=== PATIENT | female | born 1960 | race Caucasian/White ===

== ENCOUNTER 2017-10-21 08:40 | Outpatient (CLI) | payer OTHER ==
--- NOTE | 2017-10-21 14:32 | MRI ---
MRI PELVIS WITH AND WITHOUT IV CONTRAST: INDICATIONS: Followup abnormal findings in the bladder. COMPARISON: Prior MRIs pelvis dated 08/13/2016, 06/27/2015, and 03/07/2015. FINDINGS: The slight asymmetric wall thickening involving the anterior bladder does not appear appreciably whyte ged. No definite intraluminal mass is grossly evident on the partially distended bladder. No free f luid is identified. No lymphadenopathy is noted. The small, T2 hyperintense, mildly enhancing lesio n within the posterior right sacrum, on image 22 of series 11, is stable, likely reflecting a small, benign, atypical hemangioma. No additional suspicious bone marrow signal abnormality is evident. Th e visualized aspects of the uterus, rectum, and perirectal soft tissues are within normal limits. Tr david physiologic fluid is seen within the pelvis. IMPRESSION: 1. Stable MRI examination of the pelvis with stable, mild, asymmetric thickening involving the anter ior superior aspect of the bladder. Again, findings may reflect sequela of a chronic inflammatory pr ocess, such as chronic cystitis. 2. Stable, small, atypical hemangioma within the right aspect of the sacrum. POS: [facility]
[2017-10-21] MEDS ORDERED: Gadobenate Dimeglumine 529 MG/1 ML (20ML VIAL) ONE (15:19)
== END 2017-10-21 08:41 | disposition home or self-care (01) ==
LOC: MRI 08:40
PROVIDERS: ATTEND Urology
DX: R93.49 Abnormal radiologic findings on diagnostic imaging of other urinary organs (principal); D18.09 Hemangioma of other sites
CPT/HCPCS: 72197; A9579

== ENCOUNTER 2019-03-26 11:58 | Outpatient (CLI) | payer OTHER ==
--- NOTE | 2019-03-26 12:26 | MMO ---
Bilateral MAMMO Bilat Screen [facility]. CLINICAL HISTORY: Patient is 59 years old and is seen for screening. The patient has no family history of breast cancer. The patient has no personal history of cancer. VIEWS: The views performed were: bilateral craniocaudal with tomosynthesis and bilateral mediolateral oblique with tomosynthesis. FILMS COMPARED: The present examination has been compared to prior imaging studies performed at [facility] on 09/24/2011, 10/13/2013, 03/30/2015 and 03/28/2017. MAMMOGRAM FINDINGS: The breasts are heterogeneously dense, which could obscure a lesion on mammography. There are no suspicious masses, suspicious calcifications, or new areas of architectural distortion. IMPRESSION: THERE IS NO MAMMOGRAPHIC EVIDENCE OF MALIGNANCY. A ROUTINE FOLLOW-UP MAMMOGRAM IN 1 YEAR IS RECOMMENDED. THE RESULTS OF THIS EXAM WERE SENT TO THE PATIENT. ACR BI-RADS Category 1 - Negative MAMMOGRAPHY NOTE: 1. A negative mammogram report should not delay a biopsy if a dominant of clinically suspicious mass is present. 2. Approximately 10% to 15% of breast cancers are not detected by mammography. 3. Adenosis and dense breasts may obscure an underlying neoplasm. Reported by: VANESSA NERI MD Electonically Signed: [id number]
== END 2019-03-26 11:59 | disposition home or self-care (01) ==
LOC: BICMAMMO 11:58
PROVIDERS: ATTEND Internal Medicine
DX: Z12.31 Encounter for screening mammogram for malignant neoplasm of breast (principal)
CPT/HCPCS: 77063; 77067

== ENCOUNTER 2020-08-18 08:42 | Outpatient (CLI) | payer OTHER ==
--- NOTE | 2020-08-18 09:19 | MMO ---
Bilateral MAMMO Bilat Screen [facility]. CLINICAL HISTORY: Patient is 60 years old and is seen for screening. The patient has no family history of breast cancer. The patient has no personal history of cancer. VIEWS: The views performed were: bilateral craniocaudal with tomosynthesis and bilateral mediolateral oblique with tomosynthesis. FILMS COMPARED: The present examination has been compared to prior imaging studies performed at [facility] on 10/13/2013, 03/30/2015, 03/28/2017 and 03/26/2019. This study has been interpreted with the assistance of computer-aided detection. MAMMOGRAM FINDINGS: The breasts are heterogeneously dense, which could obscure a lesion on mammography. There are no suspicious masses, suspicious calcifications, or new areas of architectural distortion. IMPRESSION: THERE IS NO MAMMOGRAPHIC EVIDENCE OF MALIGNANCY. A ROUTINE FOLLOW-UP MAMMOGRAM IN 1 YEAR IS RECOMMENDED. THE RESULTS OF THIS EXAM WERE SENT TO THE PATIENT. ACR BI-RADS Category 1 - Negative MAMMOGRAPHY NOTE: 1. A negative mammogram report should not delay a biopsy if a dominant of clinically suspicious mass is present. 2. Approximately 10% to 15% of breast cancers are not detected by mammography. 3. Adenosis and dense breasts may obscure an underlying neoplasm. Reported by: LEILA OH MD Electonically Signed: [id number]
--- NOTE | 2020-08-18 09:42 | BD ---
DEXA BONE DENSITY STUDY: Date: 08/18/2020 HISTORY: Osteoporosis screening. COMPARISON: None. FINDINGS: Lumbar Spine: BMD (g/cm2) L1 0.942 T-Score: -0.4 Z-Score: 0.7 L2 1.031 T-Score: 0.0 Z-Score: 1.3 L3 1.028 T-Score: -0.5 Z-Score: 0.8 L4 1.031 T-Score: -0.3 Z-Score: 1.1 L1-L4 1.010 T-Score: -0.3 Z-Score: 1.0 Left Femoral Neck: 0.728 T-Score: -1.1 Z-Score: 0.1 Total Femur: 0.909 T-Score: -0.3 Z-Score: 0.6 WHO Classification: Osteopenia. 10 YEAR FRACTURE RISK: Major osteoporotic fracture: 7.4% Hip fracture: 0.6% IMPRESSION: Osteopenia with fracture risk as above. POS: [facility]
--- NOTE | 2020-08-18 09:50 | RAD ---
CHEST 2 VIEWS: Date: 08/18/2020 HISTORY: Cough. COMPARISON: None. FINDINGS: Lungs are clear. No pneumothorax or effusion. Cardiac silhouette and mediastinal contours are within normal limits. No acute osseous abnormality. IMPRESSION: No acute intrathoracic abnormality. POS: [facility]
== END 2020-08-18 08:43 | disposition home or self-care (01) ==
LOC: BICMAMMO 08:42
PROVIDERS: ATTEND Internal Medicine
DX: Z12.31 Encounter for screening mammogram for malignant neoplasm of breast (principal); Z13.820 Encounter for screening for osteoporosis; R05 Cough; I10 Essential (primary) hypertension; M85.852 Other specified disorders of bone density and structure, left thigh
CPT/HCPCS: 71046; 77063; 77067; 77080

== ENCOUNTER 2021-05-21 12:18 | Observation (INO) | payer OTHER ==
[~2021-05-21 12:18] MED LIST: Iopamidol 370 76% 100 ML VIAL ONE
[2021-05-21 13:06] LABS: #Lymphocytes 0.5 thou/uL (1.20-3.40); #Monocytes 0.5 thou/uL (0.11-0.59); #Neutrophils 8.3 thou/uL (1.40-6.50); %Basophils 0.4 % (0.0-1.0); %Eosinophils 9.2 % (0.0-10.0); %Lymphocytes 5.1 % (21.0-51.0); %Monocytes 4.7 % (0.0-10.0); %Neutrophils 80.6 % (42.0-75.0); Hemoglobin 15.7 g/dL (12.0-16.0); Mean Corpuscular HGB CONC 34.3 g/dL (32.0-36.0); Mean Corpuscular Hemoglobin 33.8 pg (27.0-31.0); Mean Corpuscular Volume 98.5 fL (78.0-98.0); Mean Platelet Volume 7.4 fL (7.4-10.4); Platelet Count 327 thou/uL (130-400); RBC Distribution Width 11.2 % (11.5-14.5); Red Blood Cell (RBC) Count 4.66 mill/uL (4.20-5.40); White Blood Cell (WBC) Count 10.3 thou/uL (4.8-10.8)
[2021-05-21 13:39] LABS: ALT (SGPT) 26 U/L (8-55); AST (SGOT) 29 U/L (5-34); Albumin 4.5 g/dL (3.5-5.0); Alkaline Phosphatase 99 U/L (40-110); Anion Gap 15 mmol/L (10-20); BUN (Urea Nitrogen) 7 mg/dL (9.8-20.1); Bilirubin, Total 1.8 mg/dL (0.2-1.2); Calc. Creatinine Clearance 0 mL/min (70-130); Calcium 9.8 mg/dL (7.8-10.44); Carbon Dioxide 24 mmol/L (22-29); Chloride 99 mmol/L (98-107); Globulin 2.9 g/dL (2.4-3.5); Glucose 101 mg/dL (70-105); Potassium 4.1 mmol/L (3.5-5.1); Protein, Total 7.4 g/dL (6.0-8.3); Sodium 134 mmol/L (136-145)
[2021-05-21] MEDS ORDERED: Magnesium 2 GM/50 ML BAG (IN WATER) ONE (13:41)
[2021-05-21] MEDS ORDERED: Albuterol 200 PUFF (6.7GM INHALER) ONE (13:41)
[2021-05-21] MEDS ORDERED: predniSONE 20 MG TAB ONE (13:41)
[2021-05-21] MEDS ORDERED: predniSONE 20 MG TAB PO SCH (13:45)
[2021-05-21] MEDS ORDERED: Magnesium 2 GM/50 ML 2 GM in Premix Bag 1 BAG IVPB SCH (13:45)
[2021-05-21] MEDS ORDERED: Albuterol 200 PUFF (6.7GM INHALER) INH SCH (13:45)
[2021-05-21 15:10] LABS: SARS-CoV-2 NAA Rapid Test Not Detected (NotDetected)
[2021-05-21] MEDS ORDERED: Doxycycline 100 MG CAP PO SCH (15:30)
[2021-05-21] MEDS ORDERED: guaiFENesin 200 MG TAB PO PRN (15:33)
[2021-05-21] MEDS ORDERED: Albuterol Sulfate 2.5 mg/3 ml Neb NEB PRN (15:34)
[2021-05-21] MEDS ORDERED: Ondansetron ODT 4 MG TAB PO PRN (15:35)
[2021-05-21] MEDS ORDERED: Ondansetron PF 4 MG/2 ML Vial IVP PRN (15:35)
[2021-05-21] MEDS ORDERED: Acetaminophen 325 MG TAB PO PRN (15:35)
[2021-05-21 15:57] LABS: Actual Bicarbonate (HCO3v) 23 mEq/L (22-28); Analyzer IN Cardio ER; Base Excess -1.7 mEq/L (-2.0 to +3.0); Calcium, Ionized (venous) 1.14 mmol/L (1.16-1.32); Chloride (VBG) 97 mmol/L (98-106); Hemoglobin (Hb) 16.2 g/dL (11.7-16.0); Potassium (VBG) 3.81 mmol/L (3.70-5.30); Sodium 134.9 mmol/L (133-146); pH (venous) 7.38 (7.32-7.43)
[2021-05-21] MEDS ORDERED: hydrALAZINE 20 MG/ML VIAL SLOW IVP PRN (16:09)
[2021-05-21] MEDS: Sodium Chloride 0.9% 1,000 ML IV SCH (19:35)
[2021-05-21] MEDS: Doxycycline 100 MG CAP PO SCH (19:36)
[2021-05-21] MEDS: Benzonatate 100 MG CAP PO PRN (19:37)
[2021-05-21] MEDS: Famotidine 20 MG TAB PO SCH (19:37)
[2021-05-21 19:52] VITALS: BMI 21.5
[2021-05-21] MEDS ORDERED: Enoxaparin Sodium 40 MG/0.4 ML SYRINGE SC SCH (21:00)
[2021-05-21 21:44] LABS: Bacteria/HPF None Seen HPF (None Seen); Bilirubin Negative (Negative); Blood, Urine Trace (Negative); Clarity Clear (Clear); Glucose, Urine (Dipstick) Normal (Negative); Ketone, Urine 10 mg/dL (Negative); Leukocyte Negative Leu/uL (Negative); Nitrite Negative (Negative); Protein, Urine (Dipstick) Negative (Neg-Trace); RBC/HPF 0-3 HPF (0-3); Specific Gravity, Urine 1.012 (1.002-1.036); Squamous Epithelial None Seen HPF (0-3); Urobilinogen Normal mg/dL (Less than 2); WBC/HPF 0-3 HPF (0-3)
[2021-05-21 21:46] LABS: Urine Culture Reflex No No
[2021-05-22] MEDS: Sodium Chloride 0.9% 1,000 ML IV SCH (05:15)
[2021-05-22 07:04] LABS: #Eosinphils 0.1 thou/uL (0.0-0.7); #Monocytes 0.5 thou/uL (0.11-0.59); #Neutrophils 6.3 thou/uL (1.40-6.50); %Basophils 0.3 % (0.0-1.0); %Eosinophils 1.3 % (0.0-10.0); %Monocytes 6.5 % (0.0-10.0); Hemoglobin 13.3 g/dL (12.0-16.0); Mean Corpuscular HGB CONC 34.3 g/dL (32.0-36.0); Mean Corpuscular Hemoglobin 33.7 pg (27.0-31.0); Mean Corpuscular Volume 98.2 fL (78.0-98.0); Mean Platelet Volume 7.6 fL (7.4-10.4); Platelet Count 293 thou/uL (130-400); RBC Distribution Width 11.1 % (11.5-14.5); Red Blood Cell (RBC) Count 3.95 mill/uL (4.20-5.40); White Blood Cell (WBC) Count 7.9 thou/uL (4.8-10.8)
[2021-05-22 07:21] LABS: Anion Gap 14 mmol/L (10-20); BUN (Urea Nitrogen) 7 mg/dL (9.8-20.1); Calc. Creatinine Clearance 74 mL/min (70-130); Calcium 8.9 mg/dL (7.8-10.44); Carbon Dioxide 24 mmol/L (22-29); Chloride 103 mmol/L (98-107); Glucose 87 mg/dL (70-105); Potassium 3.8 mmol/L (3.5-5.1); Sodium 137 mmol/L (136-145)
[2021-05-22] MEDS ORDERED: predniSONE 20 MG TAB PO SCH (08:00)
[2021-05-22] MEDS: Doxycycline 100 MG CAP PO SCH (08:20)
[2021-05-22] MEDS: Benzonatate 100 MG CAP PO PRN (08:20)
[2021-05-22] MEDS: Famotidine 20 MG TAB PO SCH (08:21)
[2021-05-22] MEDS ORDERED: Amlodipine 5 MG TAB PO SCH (09:00)
[2021-05-22] MEDS ORDERED: Non-Formulary Item 1 EACH (Budesonide-Formoterol [Symbicort 80-4.5] 80 MG/4.5 MG Aer) INH SCH (09:00)
[2021-05-22] MEDS ORDERED: guaiFENesin ER 600 MG TAB PO SCH (09:00)
[2021-05-22 09:16] VITALS: TEMP 98.2
[2021-05-22 13:04] VITALS: BP 158/89
[2021-05-22] MEDS ORDERED: Mometasone 100 MCG/Formoterol 5 MCG 120 PUFF INHALER INH SCH (18:30)
== END 2021-05-22 16:56 | disposition home or self-care (01) ==
LOC: ERS 12:18 → SUATTDRO 12:18 → T4-B 15:25
PROVIDERS: ADMIT Family Medicine; ATTEND Family Medicine
DX: J20.9 Acute bronchitis, unspecified (principal); J45.21 Mild intermittent asthma with (acute) exacerbation; J96.01 Acute respiratory failure with hypoxia; E87.1 Hypo-osmolality and hyponatremia; E80.6 Other disorders of bilirubin metabolism; I10 Essential (primary) hypertension; E78.00 Pure hypercholesterolemia, unspecified; Z20.822 Contact with and (suspected) exposure to COVID-19; Z88.2 Allergy status to sulfonamides; Z79.899 Other long term (current) drug therapy
CPT/HCPCS: 0240U; 36415; 36416; 71045; 71275; 80048; 80053; 81001; 82805; 83605; 83880; 84484; 85025; 90471; 90732; 93005; 94760; 96365; 96372; G0009; G0378; J1650; J3475; J7050; J7512; J7620; Q9967

== ENCOUNTER 2022-09-18 13:56 | Outpatient (CLI) | payer OTHER | END 2022-09-18 13:57 | disposition home or self-care (01) | LOC: RAD 13:56 | PROVIDERS: ATTEND Internal Medicine Critical Care Medicine | DX: R06.00 Dyspnea, unspecified (principal) | CPT/HCPCS: 71046 ==

== ENCOUNTER 2024-01-22 12:20 | Outpatient (CLI) | payer OTHER | END 2024-01-22 12:21 | disposition home or self-care (01) | LOC: BICMAMMO 12:20 | PROVIDERS: ATTEND Internal Medicine | DX: Z12.31 Encounter for screening mammogram for malignant neoplasm of breast (principal) | CPT/HCPCS: 77063; 77067 ==

== ENCOUNTER 2025-05-02 11:49 | Outpatient (CLI) | payer OTHER | END 2025-05-02 11:50 | disposition home or self-care (01) | LOC: BICMAMMO 11:49 | PROVIDERS: ATTEND Internal Medicine | DX: Z78.0 Asymptomatic menopausal state (principal); M85.852 Other specified disorders of bone density and structure, left thigh | CPT/HCPCS: 77080 ==

== ENCOUNTER 2025-05-03 13:51 | Outpatient (CLI) | payer OTHER | END 2025-05-03 13:52 | disposition home or self-care (01) | LOC: BICRAD 13:51 | PROVIDERS: ATTEND Internal Medicine | DX: R05.9 Cough, unspecified (principal); I10 Essential (primary) hypertension | CPT/HCPCS: 71046 ==